=== PATIENT | female | born 1970 | race Caucasian/White ===

== ENCOUNTER 2022-04-13 01:53 | Emergency (ER) | payer SELFPAY ==
[~2022-04-13] VITALS: Ht 162.6 cm; Wt 73.0 kg
[2022-04-13] MEDS ORDERED: SODIUM CHLORIDE 0.9% 1,000 ML IV ONE (02:30)
[2022-04-13 04:01] LABS: BASOPHILS % 0.4 % (0.0-2.0); EOSINOPHILS % 1.2 % (0.0-5.0); HEMATOCRIT. 41.3 % (36.0-48.0); HEMOGLOBIN. 13.8 g/dL (12.0-16.0); LYMPHOCYTES % 23.8 % (20.0-50.0); MEAN CORPUSCULAR HEMOGLOBIN 28.4 pg (28.0-32.0); MEAN PLATELET VOLUME 8.2 fl (7.4-10.4); NEUTROPHILS % 67.6 % (40.0-76.0); PLATELET 247 x1000/uL (130-400); RED BLOOD CELL COUNT 4.87 mill/uL (4.2-5.4); RED CELL DISTRIBUTION WIDTH 14.4 % (11.6-14.6)
[2022-04-13 04:20] LABS: CHLORIDE 114 mEq/L (98-107)
[2022-04-13 04:30] VITALS: BP 115/76
[2022-04-13 04:47] LABS: ETHANOL BLOOD 310 mg/dL
== END 2022-04-13 05:56 | disposition home or self-care (01) ==
LOC: ER 01:53
DX: F10.129 Alcohol abuse with intoxication, unspecified (principal); Z86.59 Personal history of other mental and behavioral disorders; Y90.8 Blood alcohol level of 240 mg/100 ml or more
CPT/HCPCS: 36415; 80053; 80320; 85025; 99283; J7030; G0480

== ENCOUNTER 2023-11-02 18:05 | Emergency (ER) | payer MEDICAID, OTHER ==
[~2023-11-02] VITALS: Ht 160 cm; Wt 73.0 kg
[~2023-11-02 18:05] MED LIST: LEVE750T4 PO; SERT25TA MT
[2023-11-02 18:15] VITALS: BP 135/85; PULSE 87; RESP 16; TEMP 98; O2SAT 100
== END 2023-11-02 21:49 | disposition home or self-care (01) ==
LOC: ER 18:05
DX: M79.89 Other specified soft tissue disorders (principal); F10.20 Alcohol dependence, uncomplicated; Y90.9 Presence of alcohol in blood, level not specified
CPT/HCPCS: 99281